=== PATIENT | male | born 2000 | race Caucasian/White ===

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

== ENCOUNTER 2018-02-11 13:37 | Emergency (ER) | payer BC, MEDICAID ==
[~2018-02-11] VITALS: Ht 154.9 cm; Wt 81.6 kg
[~2018-02-11 13:37] MED LIST: ALBUAER3 IN
[2018-02-11 13:47] VITALS: BP 105/62
== END 2018-02-11 15:37 | disposition home or self-care (01) ==
LOC: ER 13:39
DX: S63.272A Dislocation of unspecified interphalangeal joint of right middle finger, initial encounter (principal); J45.909 Unspecified asthma, uncomplicated; X58.XXXA Exposure to other specified factors, initial encounter; Y93.89 Activity, other specified; Y99.8 Other external cause status; Y92.89 Other specified places as the place of occurrence of the external cause
CPT/HCPCS: 26770; 73130